=== PATIENT | male | born 1975 | race Caucasian/White ===

== ENCOUNTER 2018-06-08 08:02 | Emergency (ER) | payer MEDICAID, OTHER ==
[~2018-06-08] VITALS: Ht 172.7 cm; Wt 72.6 kg
[~2018-06-08 08:02] MED LIST: NEOMY/BACITRA/POLYMYXIN B OINT UD PACKET TP ONE
[2018-06-08] MEDS ORDERED: NEOMY/BACITRA/POLYMYXIN B OINT UD PACKET TP ONE (08:15)
--- NOTE | 2018-06-08 08:31 | NUR ---
Patient discharged in stable conditon. Written and verbal after care instructions given. Patient verbalizes understanding of instructions. Pt left ER in [employer] [employer]. [employer] officer sogned d/c paper work for Pt.
[2018-06-08 08:34] VITALS: BP 128/88
== END 2018-06-08 08:34 ==
LOC: ER 08:02
DX: S60.416A Abrasion of right little finger, initial encounter (principal); S60.413A Abrasion of left middle finger, initial encounter; Z88.0 Allergy status to penicillin; W22.8XXA Striking against or struck by other objects, initial encounter; Y93.89 Activity, other specified; Y92.89 Other specified places as the place of occurrence of the external cause; Y99.8 Other external cause status
CPT/HCPCS: A4663

== ENCOUNTER 2019-04-09 09:06 | Emergency (ER) | payer OTHER ==
[~2019-04-09] VITALS: Ht 165.1 cm; Wt 68.0 kg
[2019-04-09] MEDS ORDERED: ONDANSETRON 4 MG/2 ML VIAL IV ONE (09:45)
[2019-04-09] MEDS ORDERED: IV NORMAL SALINE 1000 ML BAG IV ONE (09:45)
[2019-04-09] MEDS ORDERED: HYDROMORPHONE 1 MG/1 ML DISP.SYRIN IV ONE (09:45)
[2019-04-09] MEDS ORDERED: HYDROMORPHONE 1 MG/1 ML DISP.SYRIN ONE (10:00)
[2019-04-09] MEDS ORDERED: ONDANSETRON 4 MG/2 ML VIAL ONE (10:00)
--- NOTE | 2019-04-09 10:08 | NUR ---
PT IS IN ROOM #2A. DR STALLINGS EVALUATED THE PT.
[2019-04-09 10:18] LABS: BASOPHILS % (AUTO) 0.8 % (0.0-2.0); EOSINOPHILS # (AUTO) 0.4 K/uL (0.0-0.7); EOSINOPHILS % (AUTO) 6.6 % (0.0-7.0); HEMATOCRIT 47.5 % (36.7-47.1); HEMOGLOBIN 16.2 g/dL (12.5-16.3); LYMPHOCYTES # (AUTO) 1.6 K/uL (20.0-40.0); LYMPHOCYTES % (AUTO) 29.8 % (20.5-51.5); MEAN CORPUSCULAR HEMOGLOBIN 32.9 uug (23.8-33.4); MEAN CORPUSCULAR HGB CONC 34 g/dL (32.5-36.3); MEAN CORPUSCULAR VOLUME 96.7 fL (73.0-96.2); MONOCYTES # (AUTO) 0.3 K/uL (2.0-10.0); NEUTROPHILS # (AUTO) 3.1 K/uL (1.8-8.9); NEUTROPHILS % (AUTO) 56.8 % (38.5-71.5); PLATELET COUNT (AUTO) 222 K/uL (152-348); RED BLOOD CELL COUNT(AUTO) 4.91 MIL/uL (4.06-5.63); WHITE BLOOD COUNT (AUTO) 5.4 K/uL (3.6-10.2)
[2019-04-09 10:28] LABS: BILIRUBIN,DIRECT 0.1 mg/dL (0.0-0.2); BILIRUBIN,TOTAL 0.6 mg/dL (0.2-1.0); CREATININE 1.3 mg/dL (0.6-1.3); POTASSIUM 4.5 mmol/L (3.5-5.1); TOTAL PROTEIN, SERUM 8.4 g/dL (6.4-8.2)
--- NOTE | 2019-04-09 11:20 | NUR ---
PT WAS EVALUATED BY DR STALLINGS. PT WAS D/C'd TO HOME. D/C INSTRUCTIONS GIVEN TO THE PT.
[2019-04-09 11:23] VITALS: BP 125/78
== END 2019-04-09 11:24 | disposition home or self-care (01) ==
LOC: ER 09:09
DX: K52.9 Noninfective gastroenteritis and colitis, unspecified (principal); Z88.0 Allergy status to penicillin
CPT/HCPCS: 36415; 80048; 80076; 83690; 85025; 96361; 96374; 96375; 99283; J1170; J2405; A4663; J7030

== ENCOUNTER 2019-04-14 08:06 | Emergency (ER) | payer OTHER ==
[~2019-04-14] VITALS: Ht 165.1 cm; Wt 72.6 kg
[2019-04-14] MEDS ORDERED: IPRATROPIUM BROMIDE 0.5 MG/2.5 ML NEBU NEB ONE (08:30)
[2019-04-14] MEDS ORDERED: ALBUTEROL SULFATE 2.5 MG/3 ML NEBU ONE (08:30)
[2019-04-14] MEDS ORDERED: ALBUTEROL SULFATE 2.5 MG/3 ML NEBU NEB ONE (08:30)
[2019-04-14] MEDS ORDERED: IPRATROPIUM BROMIDE 0.5 MG/2.5 ML NEBU ONE (08:31)
--- NOTE | 2019-04-14 08:31 | NUR ---
PT IS IN ROOM #2A. DR PINEDA EVALUATED THE PT.
[2019-04-14 09:12] VITALS: BP 141/84
--- NOTE | 2019-04-14 09:12 | NUR ---
PT WAS D/C'd TO HOME . D/C INSTRUCTIONS GIVEN TO THE PT.
== END 2019-04-14 09:13 | disposition home or self-care (01) ==
LOC: ER 08:06
DX: J40 Bronchitis, not specified as acute or chronic (principal)
CPT/HCPCS: 71045; 93005; A4663; J3590

== ENCOUNTER 2019-09-10 23:18 | Emergency (ER) | payer OTHER ==
[~2019-09-10] VITALS: Ht 165.1 cm; Wt 68.0 kg
--- NOTE | 2019-09-10 23:54 | NUR ---
ERMD at bedside for MSE
[2019-09-11] MEDS ORDERED: ALBUTEROL SULFATE 2.5 MG/ 0.5 ML NEBU ONE (00:13)
[2019-09-11] MEDS ORDERED: IPRATROPIUM BROMIDE 0.5 MG/2.5 ML NEBU ONE (00:13)
[2019-09-11] MEDS ORDERED: IPRATROPIUM BROMIDE 0.5 MG/2.5 ML NEBU NEB ONE (00:15)
[2019-09-11] MEDS ORDERED: ALBUTEROL SULFATE 2.5 MG/3 ML NEBU NEB ONE (00:15)
[2019-09-11 00:18] LABS: BASOPHILS # (AUTO) 0.1 K/uL (0.0-8.0); BASOPHILS % (AUTO) 1.1 % (0.0-2.0); EOSINOPHILS # (AUTO) 0.2 K/uL (0.0-0.7); HEMATOCRIT 44.3 % (36.7-47.1); HEMOGLOBIN 15.2 g/dL (12.5-16.3); LYMPHOCYTES # (AUTO) 2.8 K/uL (20.0-40.0); LYMPHOCYTES % (AUTO) 51.8 % (20.5-51.5); MEAN CORPUSCULAR HEMOGLOBIN 33.4 uug (23.8-33.4); MEAN CORPUSCULAR HGB CONC 34 g/dL (32.5-36.3); MONOCYTES # (AUTO) 0.2 K/uL (2.0-10.0); MONOCYTES % (AUTO) 4.6 % (0.0-11.0); NEUTROPHILS # (AUTO) 2.1 K/uL (1.8-8.9); NEUTROPHILS % (AUTO) 38.5 % (38.5-71.5); PLATELET COUNT (AUTO) 248 K/uL (152-348); RED BLOOD CELL COUNT(AUTO) 4.56 MIL/uL (4.06-5.63); WHITE BLOOD COUNT (AUTO) 5.4 K/uL (3.6-10.2)
[2019-09-11 00:23] LABS: CARBON DIOXIDE 25 mmol/L (21-32); CHLORIDE 102 mmol/L (98-107); GLUCOSE 109 mg/dL (74-106); POTASSIUM 3.8 mmol/L (3.5-5.1); UREA NITROGEN, BLOOD 8 mg/dL (7-18)
[2019-09-11 00:36] LABS: ALANINE AMINOTRANSFERASE 75 U/L (16-63); ALKALINE PHOSPHATASE 116 U/L (50-136); ASPARTATE AMINOTRANSFERASE 125 U/L (15-37); BILIRUBIN,DIRECT 0.1 mg/dL (0.0-0.2); BILIRUBIN,TOTAL 0.5 mg/dL (0.2-1.0)
[2019-09-11] MEDS ORDERED: ASPIRIN 325 MG TABLET PO ONE (00:45)
[2019-09-11] MEDS ORDERED: ASPIRIN 325 MG TABLET ONE (00:51)
[2019-09-11 01:06] LABS: *AMPHETAMINE, URINE NEGATIVE (NEGATIVE); *BARBITURATE, URINE NEGATIVE (NEGATIVE); *CANNABINOID, URINE NEGATIVE (NEGATIVE); *COCCAINE, URINE POSITIVE (NEGATIVE); *OPIATE, URINE NEGATIVE (NEGATIVE); *PHENCYCLIDINE SCREEN,URINE NEGATIVE (NEGATIVE)
--- NOTE | 2019-09-11 01:13 | NUR ---
Patient does not wish to proceed with medical care recommended by Dr. Michael. Patient given information related to possible complications, up to and including , which could occur as a result of leaving the hospital at this time. Patient verbalizes understanding of risks involved due to leaving against medical advice. Patient has signed AMA form.
[2019-09-11 01:14] VITALS: BP 155/98
== END 2019-09-11 01:16 | disposition left against medical advice (07) ==
LOC: ER 23:21
DX: R07.9 Chest pain, unspecified (principal); R06.02 Shortness of breath; Z82.49 Family history of ischemic heart disease and other diseases of the circulatory system; R00.0 Tachycardia, unspecified; R74.0 Nonspecific elevation of levels of transaminase and lactic acid dehydrogenase [LDH]; R73.9 Hyperglycemia, unspecified
CPT/HCPCS: 36415; 70030-TC; 71045; 80307; 85025; 93005; A4663; J3590

== ENCOUNTER 2019-10-12 21:34 | Emergency (ER) | payer OTHER ==
[~2019-10-12] VITALS: Ht 165.1 cm; Wt 70.3 kg
[2019-10-12] MEDS ORDERED: [UNRECOGNIZED DRUG - REMARK] (21:43)
--- NOTE | 2019-10-12 21:50 | NUR ---
Patient arrived to ER for asthma exac. after eating black pepper, patient is alert and oriented x4, vitals stable, complaints of shortness of breath, oxygen saturation noted at 100% on room air, patient appears anxious and cant sit still, assisted to bed at this time but continues to stand and pace.
[2019-10-12] MEDS ORDERED: ALBUTEROL SULFATE 2.5 MG/3 ML NEBU NEB ONE (22:00)
[2019-10-12] MEDS ORDERED: ALBUTEROL SULFATE 2.5 MG/3 ML NEBU ONE (22:11)
--- NOTE | 2019-10-12 22:15 | NUR ---
Patient receiving breathing treatment at this time
--- NOTE | 2019-10-12 22:28 | NUR ---
ISATU MAYES at bedsided for MSE
--- NOTE | 2019-10-12 22:48 | NUR ---
Patient discharged to home in stable condition. patient ambulated by self with steady gate. no complaints of pain at this time, no signs of distress. Patient received Rx. Written and verbal after care instructions given. Patient verbalizes understanding of instructions. Stressed follow up or return to ER for worsening s/s.
[2019-10-12 22:54] VITALS: BP 125/80
== END 2019-10-12 22:48 | disposition home or self-care (01) ==
LOC: ER 21:34
DX: J45.901 Unspecified asthma with (acute) exacerbation (principal); F41.9 Anxiety disorder, unspecified; R00.0 Tachycardia, unspecified
CPT/HCPCS: A4663

== ENCOUNTER 2019-10-19 17:49 | Emergency (ER) | payer OTHER ==
[~2019-10-19] VITALS: Ht 165.1 cm; Wt 70.3 kg
[~2019-10-19 17:49] MED LIST changes: -NEOMY/BACITRA/POLYMYXIN B OINT UD PACKET TP ONE; +[UNRECOGNIZED DRUG - REMARK]
--- NOTE | 2019-10-19 18:21 | NUR ---
pt keeps asking about the wifi, was told, pt unable to find it in his tablet, yelling about why he cannot find it, pt does not stay in the room, had to ask security to keep the pt in room.
--- NOTE | 2019-10-19 18:25 | NUR ---
pt eloped, walking in steady gait, talking and yelling in full sentences,
== END 2019-10-19 18:25 | disposition left against medical advice (07) ==
LOC: ER 17:50
DX: Z75.3 Unavailability and inaccessibility of health-care facilities (principal)

== ENCOUNTER 2021-03-29 18:32 | Emergency (ER) | payer OTHER ==
--- NOTE | 2021-03-29 19:45 | NUR ---
PATIENT WAS CALLED TO BE TRIAGED BUT WAS NOT PRESENT IN THE WAITING ROOM OR OUTSIDE OF ER.
--- NOTE | 2021-03-29 20:00 | NUR ---
PATIENT WAS CALLED TO BE TRIAGED BUT WAS NOT IN THE [facility] ROOM OR OUTSIDE OF ER.
--- NOTE | 2021-03-29 20:15 | NUR ---
PATIENT WAS CALLED TO BE TRIAGED BUT WAS NOT PRESENT. PATIENT WAS NOT SEEN BY ERMD OR TRIAGED.
== END 2021-03-29 20:15 | disposition left against medical advice (07) ==
LOC: ER 18:33
DX: Z53.21 Procedure and treatment not carried out due to patient leaving prior to being seen by health care provider (principal)

== ENCOUNTER → 2021-04-17 | Emergency (ER) | payer OTHER ==
[~2021-04-17] VITALS: Ht 165.1 cm; Wt 70.3 kg
--- NOTE | 2021-04-17 15:30 | NUR ---
PT DECIDED TO LEAVE W/OUT BEING SEEN BY MD - WILL GO TO [facility] HIMSELF - "AFRAID OF POTENTIAL COVID EXPOSURE.
== END | disposition left against medical advice (07) ==
LOC: ER 15:06
DX: Z53.21 Procedure and treatment not carried out due to patient leaving prior to being seen by health care provider (principal)

== ENCOUNTER 2022-02-10 20:55 | Emergency (ER) | payer OTHER ==
[~2022-02-10] VITALS: Ht 167.6 cm; Wt 77.1 kg
[2022-02-10] MEDS ORDERED: diphenhydrAMINE 50 MG/1 ML VIAL ONE (21:27)
[2022-02-10] MEDS ORDERED: THIAMINE HCL 100 MG TABLET ONE (21:27)
[2022-02-10] MEDS ORDERED: HALOPERIDOL LACTATE 5 MG/1 ML VIAL ONE (21:27)
[2022-02-10] MEDS ORDERED: HALOPERIDOL LACTATE 5 MG/1 ML VIAL IM ONE (21:30)
[2022-02-10] MEDS ORDERED: diphenhydrAMINE 50 MG/1 ML VIAL IM ONE (21:30)
[2022-02-10] MEDS ORDERED: IV NORMAL SALINE 1000 ML BAG IV ONE (21:30)
[2022-02-10] MEDS ORDERED: THIAMINE HCL 100 MG TABLET PO ONE (21:30)
[2022-02-10 21:49] LABS: HEMATOCRIT 33.6 % (36.7-47.1); PLATELET COUNT (AUTO) 214 K/uL (152-348)
[2022-02-10 22:09] LABS: ALANINE AMINOTRANSFERASE 59 U/L (16-63); ALKALINE PHOSPHATASE 215 U/L (50-136); ASPARTATE AMINOTRANSFERASE 120 U/L (15-37); BILIRUBIN,DIRECT 0.5 mg/dL (0.0-0.2); BILIRUBIN,TOTAL 0.8 mg/dL (0.2-1.0); CARBON DIOXIDE 23 mmol/L (21-32); CHLORIDE 84 mmol/L (98-107); CREATININE 0.7 mg/dL (0.6-1.3); GLUCOSE 109 mg/dL (74-106); TOTAL PROTEIN, SERUM 7.8 g/dL (6.4-8.2); UREA NITROGEN, BLOOD 3 mg/dL (7-18)
[2022-02-10 22:12] LABS: ETHANOL 470 MG/DL (0-0)
[2022-02-10 22:22] LABS: ACETAMINOPHEN < 2.0 ug/mL (10-30); POTASSIUM 2.7 mmol/L (3.5-5.1)
[2022-02-10] MEDS ORDERED: MAGNESIUM SULFATE/D5W 400 ML ONE (22:27)
[2022-02-10] MEDS: MAGNESIUM SULFATE/D5W 100 ML IV SCH ×3 (22:30→23:30)
[2022-02-10] MEDS ORDERED: IV NS 1000 ML 1,000 ML IV ONE (23:00)
[2022-02-10] MEDS ORDERED: CYANOCOBALAMIN 1000 MCG/ML VIAL IM ONE (23:00)
[2022-02-10] MEDS: POTASSIUM CHLORIDE 50 ML IV SCH (23:05)
[2022-02-10] MEDS ORDERED: POTASSIUM CHLORIDE 200 ML ONE (23:08)
[2022-02-10] MEDS ORDERED: CYANOCOBALAMIN 1000 MCG/ML VIAL ONE (23:08)
[2022-02-11] MEDS: MAGNESIUM SULFATE/D5W 100 ML IV SCH ×2 (00:02→00:29)
[2022-02-11] MEDS: POTASSIUM CHLORIDE 50 ML IV SCH ×3 (00:03→02:00)
--- NOTE | 2022-02-11 00:11 | NUR ---
Dr. Oh speaking with Dr. Rico of [facility].
[2022-02-11 00:13] LABS: *BILIRUBIN,URIN NEGATIVE (NEGATIVE); *BLOOD, URINE NEGATIVE (NEGATIVE); *CLARITY,URINE CLEAR (CLEAR); *COLOR,URINE YELLOW (YELLOW); *KETONES,URINE NEGATIVE (NEGATIVE); *UROBILINOGEN,URINE 0.2 E.U./dl (NORMAL); LEUKOCYTE ESTERASE ,URINE NEGATIVE (NEGATIVE); NITRITE, URINE NEGATIVE (NEGATIVE); UGLUCOSE NEGATIVE (NEGATIVE)
[2022-02-11 00:19] LABS: BACTERIA,URINE NONE SEEN /HPF (NONE SEEN); RBC,URINE 0-3 /HPF (0-3); SQUAMOUS EPITHELIAL CELL,UR FEW /HPF (NONE SEEN); WBC,URINE 0-3 /HPF (0-3)
--- NOTE | 2022-02-11 00:23 | NUR ---
Received call back from [employer] sales manager with transfer information: Patient is going to [facility], Accepted by Dr. Royal, room 210C, Number to report , eta [phone].
[2022-02-11 00:26] LABS: *AMPHETAMINE, URINE NEGATIVE (NEGATIVE); *CANNABINOID, URINE NEGATIVE (NEGATIVE); *COCCAINE, URINE NEGATIVE (NEGATIVE); *OPIATE, URINE NEGATIVE (NEGATIVE); *PHENCYCLIDINE SCREEN,URINE NEGATIVE (NEGATIVE)
--- NOTE | 2022-02-11 01:10 | NUR ---
report given to Christiana WALKER extension supervisor - [facility]
[2022-02-11] MEDS ORDERED: LORAZEPAM 2 MG/1 ML VIAL IV ONE ×2 (01:15→04:45)
[2022-02-11] MEDS ORDERED: LORAZEPAM 2 MG/1 ML VIAL ONE ×2 (01:16→04:46)
--- NOTE | 2022-02-11 04:00 | NUR ---
Patient is now awake and alert. Trying to get out of bed. MD notified
--- NOTE | 2022-02-11 04:35 | NUR ---
Patient is now awake and alert.
--- NOTE | 2022-02-11 04:35 | NUR ---
Patient stated he wants to leave and does not want to get transfered. Dr Oh notified
--- NOTE | 2022-02-11 04:40 | NUR ---
Called [facility], spoke with Christiana RN-supervisor liquid yeast. Made aware about the ambulnce delay
--- NOTE | 2022-02-11 04:40 | NUR ---
called [facility] for updates, was told the unit is moved to 12nn instead of 0400
[2022-02-11] MEDS ORDERED: HALOPERIDOL LACTATE 5 MG/1 ML VIAL ONE (04:45)
[2022-02-11] MEDS ORDERED: diphenhydrAMINE 50 MG/1 ML VIAL IV ONE (04:45)
[2022-02-11] MEDS ORDERED: HALOPERIDOL LACTATE 5 MG/1 ML VIAL IV ONE (04:45)
[2022-02-11] MEDS ORDERED: POTASSIUM BICARBONATE/CIT AC 25 MEQ TABLET.EFF ONE (04:45)
[2022-02-11] MEDS ORDERED: diphenhydrAMINE 50 MG/1 ML VIAL ONE (04:45)
[2022-02-11] MEDS ORDERED: POTASSIUM BICARBONATE/CIT AC 25 MEQ TABLET.EFF PO ONE (04:45)
[2022-02-11] MEDS ORDERED: CHLORDIAZEPOXIDE HCL 25 MG CAPSULE ONE (04:45)
[2022-02-11] MEDS ORDERED: CHLORDIAZEPOXIDE HCL 25 MG CAPSULE PO ONE (04:45)
--- NOTE | 2022-02-11 04:52 | NUR ---
patient is able to tolerate fluids/PO meds
[2022-02-11 05:57] LABS: CREATININE 0.7 mg/dL (0.6-1.3); POTASSIUM 4.4 mmol/L (3.5-5.1)
--- NOTE | 2022-02-11 07:14 | NUR ---
BERENICEAR to Kelli WALKER
--- NOTE | 2022-02-11 07:52 | NUR ---
per report, pt is waiting for ALS transport ETA 12pm today.
--- NOTE | 2022-02-11 09:17 | NUR ---
pt attempted to get out of bed, pt is aggitated and refusing transport at this time. made aware.
[2022-02-11 09:45] LABS: CREATININE 0.7 mg/dL (0.6-1.3); POTASSIUM 4.3 mmol/L (3.5-5.1)
[2022-02-11] MEDS ORDERED: CHLO25CA22 PO (11:16)
--- NOTE | 2022-02-11 11:29 | NUR ---
patient requesting to leave MD KYLAH and pt family made aware. pt is in stable consition, is steady on feet. IV and garcía catheter removed, pt was able to urinate immediately after. pt signed AMA form and pt's sister Larissa and their father arrived to take patient home, they have plans to admit him to a rehab facility and patient is in agreement.
[2022-02-11 11:32] VITALS: BP 126/68
== END 2022-02-11 11:32 | disposition left against medical advice (07) ==
LOC: ER 20:56
DX: F10.221 Alcohol dependence with intoxication delirium (principal); Y90.8 Blood alcohol level of 240 mg/100 ml or more; E87.1 Hypo-osmolality and hyponatremia; E87.6 Hypokalemia; E83.42 Hypomagnesemia; Z20.822 Contact with and (suspected) exposure to COVID-19; Z87.820 Personal history of traumatic brain injury; Z88.0 Allergy status to penicillin; J45.909 Unspecified asthma, uncomplicated; F25.9 Schizoaffective disorder, unspecified; Z53.29 Procedure and treatment not carried out because of patient's decision for other reasons
CPT/HCPCS: 80076; 80048 ×3; 81001; 82607; 83735 ×2; 85025; 36415 ×2; 93005; 99285; 96365; 96366; 96368; 96372; 83605 ×3; 80299; 80320; 80307; 87426; 70450; 96375; 96376; J3420; J1200 ×2; J1630 ×2; J3475; J3480; J7040 ×2; J2060 ×2; C1758; G0480